=== PATIENT | female | born 1965 | race Hispanic/Latino ===

== ENCOUNTER 2018-04-21 08:28 | Observation (INO) | payer BC ==
[2018-04-19 12:33] VITALS: BP 217/80
[2018-04-19 12:42] LABS: EOSINOPHILS % (AUTO) 2.1 % (0.0-8.0); LYMPHOCYTES % (AUTO) 24.6 % (21.0-51.0); MEAN CORPUSCULAR HEMOGLOBIN 29.3 pg (27.0-33.0); MEAN CORPUSCULAR HGB CONC 33.6 g/dL (32.0-36.0); MEAN CORPUSCULAR VOLUME 87.2 fL (79-99); MONOCYTES % (AUTO) 6.4 % (3.0-13.0); NEUTROPHILS % (AUTO) 65.9 % (40.0-77.0); PLATELET COUNT (AUTO) 422 K/uL (130-400); RED BLOOD CELL COUNT(AUTO) 4.47 MIL/uL (4.00-5.50); RED CELL DISTRIBUTION WIDTH 13.4 % (11.0-15.5); WHITE BLOOD COUNT (AUTO) 10.3 K/uL (4.8-10.8)
[2018-04-21] VITALS (19 sets, daily range): BP systolic 93–157; BP diastolic 54–83
[~2018-04-21] VITALS: Ht 152.4 cm; Wt 70.9 kg
[~2018-04-21 08:28] MED LIST: DILT180C11 PO
[2018-04-21] MEDS ORDERED: CALDOLOR 800MG+NS 250ML 250 ML IV ONE ×2 (09:10→17:56)
[2018-04-21] MEDS ORDERED: SULFANILAMIDE 120 GM TUBE VG ONE (09:10)
[2018-04-21] MEDS ORDERED: LIDOCAINE 1%-EPI 1:100,000 20 ML VIAL IJ ONE (09:10)
[2018-04-21] MEDS ORDERED: LACTATED RINGERS 1000ML 1,000 ML IV ONE (09:11)
[2018-04-21] MEDS ORDERED: ROCURONIUM 10MG/1ML SYR 10 MG/ML ML ONE (09:31)
[2018-04-21] MEDS ORDERED: PROPOFOL 10 MG/ML 20ML VIAL IV ONE (09:31)
[2018-04-21] MEDS ORDERED: SUCCINYLCHOLINE CHLORIDE 20 MG/ML 10 ML VIAL ONE (09:31)
[2018-04-21] MEDS ORDERED: FENTANYL CITRATE PF 50 MCG/1 ML 2ML VIAL ONE (09:31)
[2018-04-21] MEDS ORDERED: LIDOCAINE PF 2% 5ML ABBOJECT ONE (09:31)
[2018-04-21] MEDS: CEFAZOLIN SODIUM 1 GM VIAL ONE ×2 (09:34→09:55)
[2018-04-21] MEDS ORDERED: MIDAZOLAM HCL 1 MG/ML 2ML VIAL ONE (09:37)
[2018-04-21] MEDS ORDERED: CIPR-245 PO (09:38)
[2018-04-21] MEDS ORDERED: ONDA4TAB4 PO (09:38)
[2018-04-21] MEDS ORDERED: HYDRALAZINE HCL 20 MG/ML VIAL ONE (10:45)
[2018-04-21] MEDS ORDERED: GLYCOPYRROLATE 1 MG/5 ML SYRINGE ONE (10:56)
[2018-04-21] MEDS ORDERED: NEOSTIGMINE 5MG/5ML SYR IV ONE (10:56)
[2018-04-21] MEDS ORDERED: SIMETHICONE 80 MG TAB.CHEW PO PRN (11:15)
[2018-04-21] MEDS ORDERED: BISACODYL 10 MG SUPP.RECT RC PRN (11:15)
[2018-04-21] MEDS ORDERED: DOCUSATE SODIUM 100 MG CAP PO PRN (11:15)
[2018-04-21] MEDS ORDERED: PROMETHAZINE HCL 25 MG/ML 1ML AMPULE IM PRN (11:15)
[2018-04-21] MEDS ORDERED: MEPERIDINE-PF 25 MG/ML SYG ONE ×2 (11:23→11:31)
[2018-04-21] MEDS: ONDANSETRON HCL 4 MG/2 ML VIAL IVP PRN ×2 (12:20→18:01)
[2018-04-21] MEDS: SODIUM CHLORIDE 0.9% 1000ML 1,000 ML IV SCH (12:20)
[2018-04-21] MEDS: ACETAMINOPHEN-CODEINE 300/30MG TAB PO PRN (15:05)
[2018-04-21] MEDS: CEFAZOLIN 3GM /D5W 100ML 100 ML IV SCH (17:00)
[2018-04-21] MEDS: CALDOLOR 800MG+NS 250ML 250 ML IVPB SCH (18:01)
[2018-04-21] MEDS ORDERED: LEVOFLOXACIN 500 MG TABLET PO SCH (19:00)
[2018-04-22] MEDS: SODIUM CHLORIDE 0.9% 1000ML 1,000 ML IV SCH ×2 (00:04→03:05)
[2018-04-22] MEDS: ACETAMINOPHEN-CODEINE 300/30MG TAB PO PRN (00:14)
[2018-04-22] MEDS: CEFAZOLIN 3GM /D5W 100ML 100 ML IV SCH (01:16)
[2018-04-22] MEDS: CALDOLOR 800MG+NS 250ML 250 ML IVPB SCH (02:17)
[2018-04-22 03:26] VITALS: BP 130/67
[2018-04-22 06:31] LABS: HEMATOCRIT 31.2 % (36-48); MEAN CORPUSCULAR HEMOGLOBIN 29.5 pg (27.0-33.0); MEAN CORPUSCULAR HGB CONC 33.8 g/dL (32.0-36.0); MEAN CORPUSCULAR VOLUME 87.4 fL (79-99); PLATELET COUNT (AUTO) 355 K/uL (130-400); RED BLOOD CELL COUNT(AUTO) 3.56 MIL/uL (4.00-5.50); RED CELL DISTRIBUTION WIDTH 13.5 % (11.0-15.5); WHITE BLOOD COUNT (AUTO) 13.4 K/uL (4.8-10.8)
[2018-04-22 07:23] VITALS: BP 131/78
[2018-04-22] MEDS ORDERED: DILTIAZEM HCL 180 MG CAP.SR.24H PO SCH (09:00)
[2018-04-22] MEDS ORDERED: IBUPROFEN 800 MG TAB PO SCH (11:15)
== END 2018-04-22 11:20 | disposition home or self-care (01) ==
LOC: DAH 08:28 → WSH 08:29 → DAH 17:46
DX: N81.10 Cystocele, unspecified (principal); R87.810 Cervical high risk human papillomavirus (HPV) DNA test positive
CPT/HCPCS: 36415 ×2; 58262; 84702; 85025; 85027; 86850; 86900; 86901; 88309; 96365; 96366; 96367; 96375; 96376; A4215; A4344; A4351; A4600; G0378 ×27; J0330; J0360; J0690 ×2; J1741 ×3; J2001; J2175 ×2; J2250; J2405 ×2; J2704; J2710; J3010; J3490 ×2; J7030; J7120 ×2

== ENCOUNTER 2019-05-17 19:53 | Emergency (ER) | payer BC ==
[~2019-05-17 19:53] MED LIST changes: +CIPR-245 PO; +ONDA4TAB4 PO
[2019-05-17 20:22] LABS: APPEARANCE,URINE CLEAR (CLEAR); BILIRUBIN,URINE SMALL (NEGATIVE); COLOR,URINE YELLOW (YELLOW); GLUCOSE, URINE (UA) NEGATIVE (NEGATIVE); KETONES,URINE 15 mg/dL (NEGATIVE); LEUKOCYTE ESTERASE ,URINE NEGATIVE (NEGATIVE); NITRATE,URINE NEGATIVE (NEGATIVE); OCCULT BLOOD,URINE TRACE-INTACT (NEGATIVE); PH,URINE 5.5 (5.0-8.0); PROTEIN,URINE 30 mg/dL (NEGATIVE); UROBILINOGEN,URINE 0.2 mg/dL (0.2-1.0)
[2019-05-17 20:31] LABS: BACTERIA,URINE Few /HPF (None Seen); MUCUS,URINE Few LPF (None Seen)
[2019-05-17 22:29] LABS: CREATININE 1.2 mg/dL (0.5-1.5); POTASSIUM 3.9 mmol/L (3.5-5.1)
[2019-05-17 22:45] LABS: BASOPHILS % (AUTO) 0.9 % (0.0-5.0); EOSINOPHILS % (AUTO) 0.8 % (0.0-8.0); HEMATOCRIT 46.4 % (36-48); LYMPHOCYTES % (AUTO) 15.4 % (21.0-51.0); MEAN CORPUSCULAR HGB CONC 33.5 g/dL (32.0-36.0); MEAN CORPUSCULAR VOLUME 86.5 fL (79-99); MONOCYTES % (AUTO) 6.8 % (3.0-13.0); NEUTROPHILS % (AUTO) 76.1 % (40.0-77.0); PLATELET COUNT (AUTO) 31 K/uL (130-400); RED BLOOD CELL COUNT(AUTO) 5.36 MIL/uL (4.00-5.50); RED CELL DISTRIBUTION WIDTH 13.5 % (11.0-15.5); WHITE BLOOD COUNT (AUTO) 13.5 K/uL (4.8-10.8)
== END 2019-05-17 23:18 | disposition home or self-care (01) ==
LOC: EDH 19:53
DX: N20.1 Calculus of ureter (principal); I10 Essential (primary) hypertension; Z90.710 Acquired absence of both cervix and uterus
CPT/HCPCS: 36415; 74176; 80048; 81001; 85025